=== PATIENT | female | born 1990 | race Caucasian/White ===

== ENCOUNTER 2016-05-01 21:22 | Emergency (ER) | payer MEDICAID ==
[~2016-05-01] VITALS: Ht 160 cm; Wt 100.0 kg
[~2016-05-01 21:22] MED LIST: FIORIC PO; MACR100C PO; METHO500 PO
[2016-05-01 21:30] VITALS: BP 128/72; PULSE 118; RESP 16; TEMP 97.7; O2SAT 98
[2016-05-01] MEDS ORDERED: TRICTAB PO (21:37)
== END 2016-05-01 22:00 | disposition left against medical advice (07) ==
LOC: NED 21:22
DX: O26.892 Other specified pregnancy related conditions, second trimester (principal); R06.02 Shortness of breath; Z53.21 Procedure and treatment not carried out due to patient leaving prior to being seen by health care provider; Z3A.23 23 weeks gestation of pregnancy
CPT/HCPCS: 99281

== ENCOUNTER 2016-06-06 15:42 | Emergency (ER) | payer OTHER, MEDICAID ==
[~2016-06-06] VITALS: Ht 167.6 cm; Wt 120.0 kg
[~2016-06-06 15:42] MED LIST changes: -FIORIC PO; -MACR100C PO; -METHO500 PO; +TRICTAB PO
[2016-06-06 15:47] VITALS: BP 143/74; PULSE 120; RESP 22; TEMP 97.8; O2SAT 95
[2016-06-06 15:56] VITALS: BP 143/74; PULSE 120; RESP 20; O2SAT 97
[2016-06-06] MEDS ORDERED: ACETAMINOPHEN 325 MG TAB PO ONE (16:15)
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
[2016-06-06 18:17] VITALS: RESP 16
== END 2016-06-06 21:23 | disposition home or self-care (01) ==
LOC: NEPE 15:42 → HOBED 21:23
DX: O9A.212 Injury, poisoning and certain other consequences of external causes complicating pregnancy, second trimester (principal); M54.9 Dorsalgia, unspecified; Z3A.27 27 weeks gestation of pregnancy; V49.40XA Driver injured in collision with unspecified motor vehicles in traffic accident, initial encounter
CPT/HCPCS: 99284

== ENCOUNTER 2017-01-11 10:47 | Emergency (ER) | payer MEDICAID ==
[~2017-01-11] VITALS: Ht 160 cm; Wt 87.0 kg
[2017-01-11 10:48] VITALS: BP 130/80; PULSE 98; RESP 12; TEMP 98.1; O2SAT 98
--- NOTE | 2017-01-11 11:38 | PD ---
HPI Chief Complaint: Injury Time Seen by Provider: 11:35 Travel History International Travel<30 days: No Contact w/Intl Traveler<30days: No Traveled to known affect area: No History of Present Illness HPI Pt is a 26 year old female presenting to the ED for evaluation after dropping part of a rabbit cage on the bridge of her nose at work yesterday. Pt states she felt fine after the injury occurred. There was no LOC, dizziness, nausea. Pt states the bridge of her nose is tender. She has not taken any medication to alleviate the pain. There are no exacerbating factors. She rates her pain a 3/ 10. 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 ) Psychiatric: Yes Immunizations Current: Yes Seizures: Yes (as a child) ?: Not LMP: LAST MONTH : 3 Para: 3 Miscarriage: 1 Past Surgical History Section: Yes (x2) Cholecystectomy: Yes Ear Surgery: Yes (REBUILT) Oral Surgery: Yes (SEVERAL CORRECTIVE) Other Surgery: Yes (CLEFT PALLET REPAIR) Social History Alcohol Use: No Tobacco Use: No Substance Use: Yes (POT 2 DAYS AGO) Allergies-Medications (Allergen,Severity, Reaction): Coded Allergies: Sulfa (Sulfonamide Antibiotics) (Unverified Allergy, Severe, Anaphylaxis, 01/11/17) penicillin G (Unverified Allergy, Severe, 01/11/17) lamotrigine (Unverified Allergy, Intermediate, 01/11/17) TURNS PURPLE Reported Meds & Prescriptions Reported Meds & Active Scripts Active Review of Systems Except as stated in HPI: all other systems reviewed are Neg Musculoskeletal: Positive: Pain, No: Edema Skin: No Change in Pigmentation, No Lesions Physical Exam Narrative GENERAL: Over weight, well developed female. Appears well. SKIN: Warm and dry. No abrasions or edema or deformity to nose. No septal hematoma. HEAD: Normocephalic. EYES: No scleral icterus. No injection or drainage. NECK: Supple, trachea midline. No JVD or lymphadenopathy. CARDIOVASCULAR: Regular rate and rhythm without murmurs, gallops, or rubs. RESPIRATORY: Breath sounds equal bilaterally. No accessory muscle use. GASTROINTESTINAL: Abdomen soft, non-tender, nondistended. MUSCULOSKELETAL: No cyanosis, or edema. BACK: Nontender without obvious deformity. No CVA tenderness. Data Data Last Documented VS Vital Signs Date Time Temp Pulse Resp B/P (MAP) Pulse Ox O2 Delivery O2 Flow Rate FiO2 01/11/17 10:48 98.1 98 12 130/80 (97) 98 [facility] Medical Decision Making Medical Screen Exam Complete: Yes Emergency Medical Condition: No Interpretation(s) Vital Signs Date Time Temp Pulse Resp B/P (MAP) Pulse Ox O2 Delivery O2 Flow Rate FiO2 01/11/17 10:48 98.1 98 12 130/80 (97) 98 Differential Diagnosis contusion vs fracture versus abrasion versus other Narrative Course Patient is a 26 year female presenting for evaluation after dropping a rabbit cage on her nose yesterday. There is no obvious deformity, swelling, bruising or septal hematoma. Patient appears well, vital signs are stable. Patient was encouraged to take [id number] acetaminophen or ibuprofen as needed and as directed for pain. A medical screening exam was performed: At the time of evaluation the presenting medical condition was determined not to be of an emergent nature. The patient was given the option of receiving additional care, but declined. Patient was given options for additional community resources from which to obtain care. The Patient Has Been advised to seek medical attention for their presenting complaint. The patient has been advised to return to the ER at any time if an emergent condition develops. Diagnosis Primary Impression: Encounter for medical screening examination Condition: Stable Mendy Bundy Jan 11, 2017 11:38
== END 2017-01-11 11:43 | disposition left against medical advice (07) ==
LOC: NEPK 10:47
DX: S09.92XA Unspecified injury of nose, initial encounter (principal); M19.90 Unspecified osteoarthritis, unspecified site; F31.9 Bipolar disorder, unspecified; F41.9 Anxiety disorder, unspecified; R56.9 Unspecified convulsions; W22.8XXA Striking against or struck by other objects, initial encounter; Z88.2 Allergy status to sulfonamides; Z88.0 Allergy status to penicillin; Z88.8 Allergy status to other drugs, medicaments and biological substances
CPT/HCPCS: 99281